=== PATIENT | male | born 1960 | race Caucasian/White ===

== ENCOUNTER 2023-01-29 17:30 | Emergency (ER) | payer OTHER | END 2023-01-29 19:30 | disposition home or self-care (01) | LOC: KA.ED 17:30 | DX: S06.0X0A Concussion without loss of consciousness, initial encounter (principal); S20.212A Contusion of left front wall of thorax, initial encounter; Z88.0 Allergy status to penicillin; Z91.013 Allergy to seafood; Z79.82 Long term (current) use of aspirin; V89.9XXA Person injured in unspecified vehicle accident, initial encounter | CPT/HCPCS: 70450; 99283; 99284 ==